=== PATIENT | male | born 1985 | race Caucasian/White ===

== ENCOUNTER 2023-01-26 15:04 | Emergency (ER) | payer MEDICARE, OTHER ==
[~2023-01-26] VITALS: Ht 172.7 cm; Wt 97.5 kg
[~2023-01-26 15:04] MED LIST: NAPR-1196 PO
[2023-01-26 15:57] LABS: BASOPHILS % (AUTO) 0.1 % (0.0-2.0); EOSINOPHILS # (AUTO) 0.1 K/uL (0.0-0.7); EOSINOPHILS % (AUTO) 0.7 % (0.0-7.0); HEMATOCRIT 35.3 % (36.7-47.1); HEMOGLOBIN 11.4 g/dL (12.5-16.3); LYMPHOCYTES # (AUTO) 3.4 K/uL (0.8-4.8); LYMPHOCYTES % (AUTO) 30.1 % (20.5-51.5); MEAN CORPUSCULAR HEMOGLOBIN 24.9 uug (23.8-33.4); MEAN CORPUSCULAR HGB CONC 32 g/dL (32.5-36.3); MEAN CORPUSCULAR VOLUME 76.9 fL (73.0-96.2); MONOCYTES % (AUTO) 8.9 % (0.0-11.0); NEUTROPHILS # (AUTO) 6.8 K/uL (1.8-8.9); NEUTROPHILS % (AUTO) 60.2 % (38.5-71.5); PLATELET COUNT (AUTO) 485 K/uL (152-348); RED CELL DISTRIBUTION WIDTH 16.6 % (12.1-16.2); WHITE BLOOD COUNT (AUTO) 11.3 K/uL (3.6-10.2)
[2023-01-26 16:01] LABS: DIFFERENTIAL COMMENT 1
[2023-01-26 16:16] LABS: CALCIUM 9.5 mg/dL (8.5-10.1); CARBON DIOXIDE 22 mmol/L (21-32); CHLORIDE 102 mmol/L (98-107); CREATININE 1.1 mg/dL (0.6-1.3); GLUCOSE 183 mg/dL (74-106); SODIUM SERUM 140 mmol/L (136-145); UREA NITROGEN, BLOOD 12 mg/dL (7-18)
[2023-01-26 16:21] LABS: ALANINE AMINOTRANSFERASE 34 U/L (16-63); ALBUMIN 3.3 g/dL (3.4-5.0); ALKALINE PHOSPHATASE 90 U/L (50-136); ASPARTATE AMINOTRANSFERASE 17 U/L (15-37); BILIRUBIN,DIRECT 0.1 mg/dL (0.0-0.2); BILIRUBIN,TOTAL 0.3 mg/dL (0.2-1.0); NT-PRO BNP 166 pg/mL (0-125); TOTAL PROTEIN, SERUM 7.4 g/dL (6.4-8.2)
[2023-01-26] MEDS ORDERED: LORA10TA7 PO (16:49)
[2023-01-26] MEDS ORDERED: FAMO40TA7 PO (16:49)
[2023-01-26] MEDS ORDERED: CETI-90 PO (16:49)
[2023-01-26] MEDS ORDERED: PRED50TA PO (16:49)
[2023-01-26] MEDS ORDERED: methylPREDNISolone SOD SUCC 125 MG/2 ML VIAL IV ONE (17:30)
[2023-01-26] MEDS ORDERED: methylPREDNISolone SOD SUCC 125 MG/2 ML VIAL ONE (17:45)
[2023-01-26 18:06] VITALS: BP 133/82; O2SAT 99
== END 2023-01-26 18:08 | disposition home or self-care (01) ==
LOC: ER 15:04
DX: T88.6XXA Anaphylactic reaction due to adverse effect of correct drug or medicament properly administered, initial encounter (principal); R07.89 Other chest pain; M45.9 Ankylosing spondylitis of unspecified sites in spine; Z88.0 Allergy status to penicillin; Z91.018 Allergy to other foods; Z91.013 Allergy to seafood; Z79.899 Other long term (current) drug therapy
CPT/HCPCS: 99285; 96374; 71045; 80076; 80048; 83880; 85025; 85379; 85730; 84484; 36415; 93005; J2930; A4606; A4663

== ENCOUNTER 2023-06-28 21:21 | Emergency (ER) | payer MEDICARE, OTHER ==
[~2023-06-28] VITALS: Ht 172.7 cm; Wt 82.6 kg
[~2023-06-28 21:21] MED LIST changes: +CETI-90 PO; +FAMO40TA7 PO; +LORA10TA7 PO; +PRED50TA PO
[2023-06-28] MEDS ORDERED: AMOXICILLIN-CLAVUL 875-125MG TABLET ONE (21:58)
[2023-06-28] MEDS: AMOXICILLIN-CLAVUL 875-125MG TABLET PO ONE (22:00)
[2023-06-28] MEDS ORDERED: ACETAMINOPHEN ES 500 MG TABLET ONE (22:03)
[2023-06-28] MEDS: ACETAMINOPHEN ES 500 MG TABLET PO ONE (22:06)
[2023-06-28] MEDS ORDERED: AMOX-430 PO (22:08)
[2023-06-28] MEDS ORDERED: CHLO473M7 MM (22:08)
[2023-06-28 22:17] VITALS: BP 126/74; TEMP 98.5; O2SAT 99
== END 2023-06-28 22:18 | disposition home or self-care (01) ==
LOC: ER 21:23
DX: S02.5XXA Fracture of tooth (traumatic), initial encounter for closed fracture (principal); K02.9 Dental caries, unspecified; L03.211 Cellulitis of face; R22.0 Localized swelling, mass and lump, head; X58.XXXA Exposure to other specified factors, initial encounter; Y93.89 Activity, other specified; Y92.89 Other specified places as the place of occurrence of the external cause; Y99.8 Other external cause status
CPT/HCPCS: A4606; A4663; A9150